=== PATIENT | male | born 1950 | race Caucasian/White ===

== ENCOUNTER → 2017-01-17 | Outpatient (CLI) | payer MEDICARE, OTHER | END | disposition home or self-care (01) | LOC: LABWHC1 09:58 | PROVIDERS: ATTEND Internal Medicine Cardiovascular Disease | DX: I25.10 Atherosclerotic heart disease of native coronary artery without angina pectoris (principal) | CPT/HCPCS: 36415; 83704 ==

== ENCOUNTER → 2017-03-08 | Outpatient (CLI) | payer MEDICARE, OTHER ==
--- NOTE | 2017-03-12 01:12 | XR ---
EXAMINATION TYPE: XR shoulder complete RT DATE OF EXAM: 03/08/2017 3:10 PM COMPARISON: NONE HISTORY: 66-year-old male with right shoulder pain TECHNIQUE: 3 views FINDINGS: Mild degenerative spurring at the acromial clavicular joint without significant joint space narrowing . There is suggestion of some bony irregularity along the posterior humeral head, probable spurring. Some sclerosis noted at the greater tuberosity. There is inferior humeral head spurring with joint sp victoria narrowing at the glenohumeral joint. No acute fracture or dislocation. Visualized right hemithora x is clear. IMPRESSION: At least moderate glenohumeral joint osteoarthrosis. The Grashey view suggests that the degree of annel nt space narrowing may be more severe. Some mild changes at the greater tuberosity suggest chronic ro tator cuff tendinopathy. No acute osseous abnormality seen.
== END | disposition home or self-care (01) ==
LOC: RADXRYALE 14:47
PROVIDERS: ATTEND Family Medicine
DX: M19.011 Primary osteoarthritis, right shoulder (principal)

== ENCOUNTER 2017-06-09 12:20 | Emergency (ER) | payer MEDICARE, OTHER ==
--- NOTE | 2017-06-09 13:34 | XR ---
Exam: Right hand complete. HISTORY: Laceration across base of metacarpals. TECHNIQUE: 4 views of the right hand were obtained. FINDINGS: No acute fracture or subluxation is identified. No radiopaque foreign body is identified. Degenerativ e changes are noted at the first carpometacarpal joint. As well as the distal aspect of the scaphoid bone. Mild soft tissue swelling is noted. IMPRESSION: Mild soft tissue swelling is noted in the hand.
[2017-06-09] MEDS ORDERED: CEPHALEXIN 500 MG CAP PO STA (13:58)
--- NOTE | 2017-06-09 14:01 | ED ---
Wound/Laceration HPI - General Chief Complaint: Wound/Laceration Stated Complaint: Hand Laceration Time Seen by Provider: 06/09/17 12:25 Source: patient Mode of arrival: ambulatory Limitations: no limitations - History of Present Illness Initial Comments: Patient is a 67-year-old right-handed male presenting to the emergency department with chief complaint of laceration to the palmar aspect of his right hand. Patient states he was putting a post in the ground when his hand slipped on the metal. Onset of injury 11:30 AM this morning. Patient complains of a burning pain currently rated 3 out of 10 but denies need for pain medication. Place: outdoors Patient Tetanus UTD: Yes Context: sharp object use Associated Symptoms: pain Treatments Prior to Arrival: bandage, other (Patient states he irrigated the wound and poured sugar on it.) - Related Data Home Medications Medication Instructions Recorded Confirmed Ascorbic Acid [Vitamin C] 500 mg PO DAILY 07/27/14 05/23/16 Cholecalciferol [Vitamin D3] 1,000 unit PO BID 07/27/14 05/23/16 Levothyroxine Sodium [Synthroid] 150 mcg PO QAM 07/27/14 05/23/16 Vitamin E (Dl,Tocopheryl Acet) 2,000 mg PO DAILY 07/27/14 05/23/16 [Vitamin E] Clopidogrel [Plavix] 75 mg PO DAILY 11/16/14 05/23/16 Aspirin 81 mg PO HS 11/17/14 05/23/16 Losartan [Cozaar] 50 mg PO HS 11/17/14 05/23/16 Carvedilol [Coreg] 3.125 mg PO BID 11/15/15 05/23/16 Glucosam/Kamlesh-Msm1/C/Justin/Bosw 1 each PO DAILY 11/15/15 05/23/16 [Glucosamine-Chondroitin Tablet] Multivitamins, Thera [Theragran] 1 each PO DAILY 11/15/15 05/23/16 [place]-3 Fatty Acids/Fish Oil [Fish 7,200 each PO DAILY 11/15/15 05/23/16 Oil 1,000 mg Softgel] Lecithin, Soy [Lecithin] 400 mg PO DAILY 05/23/16 05/23/16 Vitamin B Complex 1 each PO DAILY 05/23/16 05/23/16 Previous Rx's Medication Instructions Recorded Atorvastatin [Lipitor] 80 mg PO HS #30 tab 07/30/14 Cephalexin [Keflex] 500 mg PO Q6HR #20 cap 06/09/17 Allergies Allergy/AdvReac Type Severity Reaction Status Date / Time tramadol Allergy Rash/Hives Verified 05/23/16 14:16 METHOXICHLOR Allergy "passed Uncoded 05/23/16 14:16 out" Review of Systems ROS Statement: Those systems with pertinent positive or pertinent negative responses have been documented in the HPI. ROS Other: All systems not noted in ROS Statement are negative. 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 , LOW THYROID. HX OF DEER TICK BITE WITH BULLSEYE RASH-NEVER TESTED FOR LYMES DISEASE., RECENT LIGHTHEADEDNESS AND DIZZINESS-STATES HAVING TESTING DONE 11/16/15. , ABDOMINAL BLOATING. arthritis in right shoulder. Last Myocardial Infarction Date:: 07-27-14 History of Any Multi-Drug Resistant Organisms: None Reported Past Surgical History: Heart Catheterization With Stent, Joint Replacement, Orthopedic Surgery Additional Past Surgical History / Comment(s): RIGHT KNEE REPLACEMENT, LT LEG SX LIGAMENT REATTATCHMENT,HEART STENT X 1 Past Anesthesia/Blood Transfusion Reactions: No Reported Reaction Date of Last Stent Placement:: 07-27-14 Past Psychological History: No Psychological Hx Reported Smoking Status: Former smoker Past Alcohol Use History: None Reported Past Drug Use History: None Reported - Past Family History Father Family Medical History: No Reported History Additional Family Medical History / Comment(s): DAD IS 88 HAS HAD KNEE AND SHOULDER REPLACEMENT, SKIN TUMOR REMOVED CANCER UNK, Mother Family Medical History: Rheumatoid Arthritis (RA) Additional Family Medical History / Comment(s): RHEUMATIC FEVER General Exam Limitations: no limitations General appearance: alert, in no apparent distress Head exam: Present: atraumatic, normocephalic, normal inspection Respiratory exam: Present: normal lung sounds bilaterally. Absent: respiratory distress, wheezes, rales, rhonchi Cardiovascular Exam: Present: regular rate, normal rhythm, normal heart sounds. Absent: systolic murmur Right Forearm Wrist exam: Present: normal inspection, full ROM. Absent: tenderness, swelling Hand Wrist exam: Present: normal inspection, full ROM, laceration (5 cm laceration to palmar aspect distal to right thumb.) Neuro motor exam: Present: wrist extension intact, thumb opposition intact, thumb IP flexion intact, thumb adduction intact, fingers 2-5 abduction intact Neurosensory exam: Present: 2-point discrimination, radial nerve intact, ulnar nerve intact, median nerve intact Vascular: Present: normal capillary refill, radial pulse, brachial pulse, ulnar pulse. Absent: vascular compromise Neurological exam: Present: alert, oriented X3, other (No focal deficits noted) Psychiatric exam: Present: normal affect, normal mood Skin exam: Present: warm, dry Procedures - Laceration Laceration #1 Consent Obtained: verbal consent Time Out Performed: No Indication: laceration Site: hand (Right hand palmar aspect proximal to right thumb) Size (cm): 5 Description: irregular Depth: simple, single layer Anesthetic Used: lidocaine 1% Anesthesia Technique: local infiltration Amount (mls): 3 Pre-repair: wound explored, irrigated extensively, wound margins revised Type of Sutures: nylon Size of Sutures: 5-0 Number of Sutures: 12 Technique: simple, interrupted Complications: bleeding (Patient did have a small amount of pulsatile bleeding after wound margins were revised. Hemostasis achieved with manual pressure and sutures.) Patient Tolerated Procedure: well Medical Decision Making - Medical Decision Making Laceration to palmar aspect of right hand. Laceration repaired. Patient tolerated procedure well. X-ray of right hand without fracture or evidence of foreign body. Discharge instructions and return parameters reviewed. Disposition Clinical Impression: Laceration Disposition: HOME SELF-CARE Condition: Good Instructions: Care For Your Stitches (ED), Laceration (ED) Additional Instructions: Please return to the emergency room in 7-10 days to have sutures removed. Please watch for any signs of infection which may include increased pain, swelling, redness, fever or chills. Please return to emergency room for any signs if infection do occur. Please use clean soap and water over the area to prevent scabbing over your stitches. Please leave wound covered for the first 24 hours and then leave wound open to air. Please return to the emergency room for any other concerns. Prescriptions: Cephalexin [Keflex] 500 mg PO Q6HR #20 cap Referrals: Helder Rose DO [Primary Care Provider] - 1-2 days Time of Disposition: 14:01
[2017-06-09 14:14] VITALS: BP 125/74; PULSE 61; RESP 16; TEMP 98
== END 2017-06-09 14:18 | disposition home or self-care (01) ==
LOC: EC 12:20
DX: S61.411A Laceration without foreign body of right hand, initial encounter (principal); I10 Essential (primary) hypertension; M19.011 Primary osteoarthritis, right shoulder; E07.9 Disorder of thyroid, unspecified; Z87.891 Personal history of nicotine dependence; Z79.02 Long term (current) use of antithrombotics/antiplatelets; Z79.82 Long term (current) use of aspirin; Z79.899 Other long term (current) drug therapy; Z88.5 Allergy status to narcotic agent; Z91.048 Other nonmedicinal substance allergy status
CPT/HCPCS: 12002; 99283

== ENCOUNTER → 2017-06-17 | Outpatient (CLI) | payer MEDICARE, OTHER ==
--- NOTE | 2017-06-17 15:44 | XR ---
EXAMINATION TYPE: XR wrist complete RT DATE OF EXAM: 06/17/2017 COMPARISON: 06/09/2017. HISTORY: Laceration pain first metacarpal TECHNIQUE: Three-view right wrist FINDINGS: Osseous changes are at the carpal junction with the scaphoid. No radiopaque foreign bodies are evident. Findings are stable from the comparison and images of the 2016. IMPRESSION: 1. Distal carpal row degenerative changes between the scaphoid and the trapezium, chronic.
== END | disposition home or self-care (01) ==
LOC: RADXRYALE 13:45
PROVIDERS: ATTEND Physician Assistant Medical
DX: M25.841 Other specified joint disorders, right hand (principal); S61.411D Laceration without foreign body of right hand, subsequent encounter

== ENCOUNTER → 2017-07-04 | Outpatient (CLI) | payer MEDICARE, OTHER ==
--- NOTE | 2017-07-04 16:06 | XR ---
EXAMINATION TYPE: XR wrist complete RT DATE OF EXAM: 07/04/2017 CLINICAL HISTORY: Swelling and pain in wrist after use. TECHNIQUE: Frontal, lateral and oblique images of the right wrist are obtained. COMPARISON: Right wrist x-ray June 17, 2017 FINDINGS: There is no acute fracture/dislocation evident in the right wrist. Radiocarpal joint space loss is redemonstrated. More prominent joint space loss with ossific re-formation is seen at distal scaphoid articulation with trapezium and trapezoid. The overlying soft tissue appears unremarkable. IMPRESSION: There is radial side degenerative change redemonstrated. No significant from most recent x-ray noted.
== END | disposition home or self-care (01) ==
LOC: RADXRYALE 15:17
PROVIDERS: ATTEND Family Medicine
DX: M25.831 Other specified joint disorders, right wrist (principal); M25.531 Pain in right wrist

== ENCOUNTER → 2018-02-27 | Outpatient (CLI) | payer MEDICARE, OTHER ==
[2018-02-27 11:36] LABS: Appearance,Urine Clear (Clear); Bilirubin,Urine Negative (Negative); Blood,Urine Negative (Negative); Color,Urine Dark Yellow; Glucose,Urine (UA) Negative (Negative); Ketones,Urine 1+ (Negative); Leukocyte Esterase,Urine Negative (Negative); Nitrite,Urine Negative (Negative); Protein,Urine Trace (Negative); Specific Gravity,Urine 1.021 (1.001-1.035); Urobilinogen,Urine <2.0 mg/dL (<2.0)
[2018-02-27 11:37] LABS: HGB 13.7 gm/dL (13.0-17.5); MCH 30.5 pg (25.0-35.0); MCHC 35.1 g/dL (31.0-37.0); MCV 86.9 fL (80.0-100.0); Mean Platelet Volume 6.6; Platelet Count 292 k/uL (150-450); RBC 4.49 m/uL (4.30-5.90); RDW 13.3 % (11.5-15.5); WBC 6.2 k/uL (3.8-10.6)
[2018-02-27 11:43] LABS: ALT 56 U/L (21-72); AST 51 U/L (17-59); Albumin 4.4 g/dL (3.5-5.0); Alkaline Phosphatase 76 U/L (38-126); Anion Gap 13 mmol/L; Blood Urea Nitrogen 13 mg/dL (9-20); Calcium 9.4 mg/dL (8.4-10.2); Carbon Dioxide 25 mmol/L (22-30); Chloride 104 mmol/L (98-107); Glucose 122 mg/dL (74-99); Potassium 4.3 mmol/L (3.5-5.1); Sodium 142 mmol/L (137-145); Total Bilirubin 0.6 mg/dL (0.2-1.3); Total Protein 6.9 g/dL (6.3-8.2)
[2018-02-27 11:57] LABS: INR 1.2 (<1.2); Partial Thromboplastin Time 23.6 sec (22.0-30.0); Prothrombin Time 11.3 sec (9.0-12.0)
== END ==
LOC: LABPAT 10:58
PROVIDERS: ATTEND Orthopaedic Surgery
DX: Z01.812 Encounter for preprocedural laboratory examination (principal)
CPT/HCPCS: 80053; 81003; 85027; 85610; 85730; 87070

== ENCOUNTER 2018-03-03 10:23 | Inpatient (IN) | payer MEDICARE, OTHER ==
[2018-02-20 16:35] VITALS: BMI 33.0
[~2018-03-03 10:23] MED LIST: ACETAMINOPHEN TAB 500 MG TAB PO ONE; LIDOCAINE 1% 20 ML VIAL (10MG/ML) FOR IV START INTRADERMA PRN; MELOXICAM 7.5 MG TAB PO ONE; ONDANSETRON ODT 4 MG TAB PO ONE; TRANEXAMIC ACID 1,000 MG in SODIUM CHLORIDE 0.9% 100 ML IVPB ONE; ceFAZolin IN SWFI 2 GM/20 ML SYRINGE IVP ONE; fentaNYL (PF) 50 MCG/ML 2 ML AMP IV PRN
[2018-03-03 11:15] LABS: Glucose,Whole Blood 116 mg/dL (75-99)
[2018-03-03] MEDS ORDERED: MIDAZOLAM 2 MG/2 ML VIAL ONE ×2 (11:23→12:42)
[2018-03-03] MEDS: LACTATED RINGERS 1,000 ML IV SCH ×2 (11:27→21:39)
[2018-03-03] MEDS ORDERED: ONDANSETRON 4 MG/2 ML VIAL IVP ONE (11:27)
[2018-03-03] MEDS ORDERED: PHENYLEPHRINE-0.9% NACL SYG 1 MG/10 ML SYRINGE ONE (12:42)
[2018-03-03] MEDS ORDERED: TRANEXAMIC ACID 1,000 MG/10 ML VIAL ONE (12:42)
[2018-03-03] MEDS ORDERED: ROCURONIUM BROMIDE 10 MG/ML 10 ML VIAL IV ONE (12:42)
[2018-03-03] MEDS ORDERED: SODIUM CHLORIDE 0.9% 100 ML BAG ONE (12:42)
[2018-03-03] MEDS ORDERED: LIDOCAINE 1% INJ 10MG/ML (20 ML MDV) ONE (12:42)
[2018-03-03] MEDS ORDERED: PROPOFOL 10 MG/ML 20 ML VIAL IV ONE (12:42)
[2018-03-03] MEDS ORDERED: SUCCINYLCHOLINE CHLORIDE 100 MG/5 ML SYR IV ONE (12:42)
[2018-03-03] MEDS ORDERED: fentaNYL (PF) 50 MCG/ML 2 ML AMP ONE (12:42)
[2018-03-03] MEDS ORDERED: MORPHINE SULFATE 10 MG/ML SYRINGE ONE (12:42)
[2018-03-03] MEDS ORDERED: ceFAZolin 1,000 MG in SODIUM CHLORIDE 0.9% 1,000 ML IRRIGATION ONE ×2 (12:47→15:10)
[2018-03-03] MEDS ORDERED: EPINEPHrine 1 MG/ML (MDV) 30 ML VIAL IRRIGATION ONE (14:50)
[2018-03-03] MEDS ORDERED: LACTATED RINGERS 1,000 ML IV ONE (14:54)
[2018-03-03] MEDS ORDERED: diphenhydrAMINE 25 MG CAP PO PRN (16:22)
[2018-03-03] MEDS ORDERED: SENNOSIDES-DOCUSATE SODIUM 1 EACH TAB PO PRN (16:22)
[2018-03-03] MEDS ORDERED: MORPHINE SULFATE 4 MG/ML SYRINGE IVP PRN ×3 (16:22)
[2018-03-03] MEDS ORDERED: hydrOXYzine PAMOATE 25 MG CAP PO PRN (16:22)
[2018-03-03] MEDS ORDERED: ONDANSETRON 4 MG/2 ML VIAL IVP PRN (16:22)
[2018-03-03] MEDS ORDERED: HYDROcodone/APAP 7.5-325MG 1 EACH TAB PO PRN ×2 (16:31→16:33)
--- NOTE | 2018-03-03 17:01 | XR ---
History postop shoulder surgery. Comparison 03/08/2017. technique single view. FINDINGS: There is a right shoulder prosthesis. Components are in anatomic position. CONCLUSION: No complicating process seen.
[2018-03-03 18:20] LABS: Glucose,Whole Blood 164 mg/dL (75-99)
[2018-03-03 20:12] LABS: Glucose,Whole Blood 138 mg/dL (75-99)
--- NOTE | 2018-03-03 23:40 | P.CONS ---
History of Present Illness - Reason for Consult Consult date: 03/03/18 Medical management of hypertension, hyperlipidemia - Chief Complaint Right shoulder arthroplasty - History of Present Illness Patient is a 67-year-old male with a known history of hypertension, diabetes type 2 [id number], obstructive sleep apnea, coronary artery disease with history of stent placement was admitted to the hospital for right total arthroplasty. Patient says that she's been having right shoulder pain for the past several years after tree fell over his shoulder. Patient currently complaining of some shortness of breath. No complaints chest pain. No fever no chills. Patient is able to provide history at this time. Review of Systems Constitutional: Patient denies any fever or chills . No generalized weakness or weight loss. Abdomen: Patient denied nausea vomiting and diarrhea and abdominal pain. Cardiovascular: Patient denies any chest pain or short of breath no palpitations. Respiratory: patient denied any cough is from production. No shortness of breath Neurologic: Patient denied any numbness or tingling headache. Musculoskeletal: Patient denies any complaints of joint swelling or deformity. Skin: Negative Psychiatric: Negative Endocrine: No heat or cold intolerance. No recent weight gain. Genitourinary: No dysuria or hematuria. 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 , LOW THYROID. HX OF DEER TICK BITE WITH BULLSEYE RASH-Neg LYMES DISEASE, ABDOMINAL BLOATING. arthritis in right shoulder,dried skin area rt index finger Last Myocardial Infarction Date:: 07-27-14 History of Any Multi-Drug Resistant Organisms: None Reported Past Surgical History: Heart Catheterization With Stent, Joint Replacement, Orthopedic Surgery Additional Past Surgical History / Comment(s): RIGHT KNEE REPLACEMENT, LT LEG SX LIGAMENT REATTATCHMENT,HEART STENT X 1 Past Anesthesia/Blood Transfusion Reactions: No Reported Reaction Additional Past Anesthesia/Blood Transfusion Reaction / Comm: no hx blood transfusion Date of Last Stent Placement:: 07-27-14 Smoking Status: Former smoker - Past Family History Father Family Medical History: No Reported History Additional Family Medical History / Comment(s): DAD IS 91 HAS HAD KNEE AND SHOULDER REPLACEMENT Mother Family Medical History: Rheumatoid Arthritis (RA) Additional Family Medical History / Comment(s): RHEUMATIC FEVER Medications and Allergies Home Medications Medication Instructions Recorded Confirmed Type Ascorbic Acid [Vitamin C] 500 mg PO BID 07/27/14 03/03/18 History Cholecalciferol [Vitamin D3] 2,000 unit PO BID 07/27/14 03/03/18 History Levothyroxine Sodium [Synthroid] 150 mcg PO QAM 07/27/14 03/03/18 History Vitamin E (Dl,Tocopheryl Acet) 1,200 mg PO DAILY 07/27/14 03/03/18 History [Vitamin E] Atorvastatin [Lipitor] 80 mg PO HS #30 tab 07/30/14 03/03/18 Rx Losartan [Cozaar] 25 mg PO HS 11/17/14 03/03/18 History Carvedilol [Coreg] 3.125 mg PO BID 11/15/15 03/03/18 History Glucosam/Kamlesh-Msm1/C/Justin/Bosw 1 tab PO DAILY 11/15/15 03/03/18 History [Glucosamine-Chondroitin Tablet] Multivitamins, Thera [Theragran] 1 tab PO DAILY 11/15/15 03/03/18 History [place]-3 Fatty Acids/Fish Oil [Fish 1 cap PO BID 11/15/15 03/03/18 History Oil 1,000 mg Softgel] Lecithin, Soy [Lecithin] 1,200 mg PO BID 05/23/16 03/03/18 History Vitamin B Complex 2 cap PO DAILY 05/23/16 03/03/18 History Cinnamon Bark [Cinnamon] 1,000 mg PO HS 02/20/18 03/03/18 History HYDROcodone/APAP 7.5-325MG [[place] 1 - 2 tab PO Q4-6H PRN #90 tab 03/03/18 Rx 7.5-325] Sennosides-Docusate Sodium 1 tab PO BID #60 tablet 03/03/18 Rx [Senokot-S] Allergies Allergy/AdvReac Type Severity Reaction Status Date / Time tramadol Allergy Rash/Hives Verified 03/03/18 16:55 METHOXICHLOR Allergy "passed Uncoded 03/03/18 10:54 out" Physical Exam Vitals: Vital Signs Temp Pulse Resp BP Pulse Ox 03/03/18 17:15 62 16 134/71 95 03/03/18 17:00 65 16 150/79 95 03/03/18 16:45 65 16 141/74 96 03/03/18 16:30 65 17 153/82 96 03/03/18 16:23 96.8 F L 68 16 142/82 97 03/03/18 11:03 97.3 F L 65 16 131/83 96 Intake and Output 03/03/18 03/03/18 03/03/18 06:59 14:59 22:59 Intake Total 1701 1 Output Total 150 Balance 1701 -149 Intake: IV 1701 1 Output: Estimated Blood Loss 150 PHYSICAL EXAMINATION: Patient is lying in the bed comfortably, no acute distress, awake alert and oriented.. HEENT: Normocephalic. Neck is supple. Pupils reactive. Nostrils clear. Oral cavity is moist. Ears reveal no drainage. Neck reveals no JVD, carotid bruits, or thyromegaly. CHEST EXAMINATION: Trachea is central. Symmetrical expansion. Lung queen clear to auscultation and percussion. CARDIAC: Normal S1, S2 with no gallops. No murmurs ABDOMEN: Soft. Bowel sounds normal. No organomegaly. No abdominal bruits. Extremities: reveal no edema. No clubbing or cyanosis Neurologically awake, alert, oriented x3 with well-coordinated movements. No focal deficits noted Skin: No rash or skin lesions. Psychiatric: Coperative. Nonsuicidal Musculoskeletal: No joint swelling or deformity. Right shoulder surgical site bandaged. Results Labs: Abnormal Lab Results - Last 24 Hours (Table) 03/03/18 Range/Units 11:12 POC Glucose (mg/dL) 116 H (75-99) mg/dL Assessment and Plan Assessment: Status post right shoulder arthroplasty. Postoperative day 0 Hypertension. Controlled Diabetes type 2. [id number] History of coronary artery disease and stent placement Osteoarthritis with history of right knee replacement History of [place] Obstructive sleep apnea Hypothyroidism Hyperlipidemia History of deer tick bite with bull's-eye rash-negative Lyme disease Deafness/hearing loss Previous history of smoking DVT prophylaxis Plan: Patient is recommended on home blood pressure medications including Coreg and losartan. Aspirin has been held for surgery. Continue with insulin sliding scale and pain management with bowel regimen. DVT prophylaxis. Otherwise we can the current management and further recommendations based on the clinical course. Will follow closely. Will check CBC. Thank you for your consult Time with Patient: Greater than 30
[2018-03-04] MEDS: ceFAZolin IN SWFI 2 GM/20 ML SYRINGE IVP SCH ×2 (01:04→09:10)
[2018-03-04] MEDS: LACTATED RINGERS 1,000 ML IV SCH ×2 (05:17)
[2018-03-04] MEDS ORDERED: LEVOTHYROXINE 75 MCG TAB PO SCH (06:30)
[2018-03-04 07:05] LABS: Glucose,Whole Blood 143 mg/dL (75-99)
[2018-03-04] MEDS ORDERED: CARVEDILOL 3.125 MG TAB PO SCH (07:30)
[2018-03-04 07:57] VITALS: BP 136/82; PULSE 85; RESP 14; TEMP 99.3
[2018-03-04] MEDS ORDERED: HYDROmorphone 2 MG TAB PO PRN ×3 (09:13→09:14)
--- NOTE | 2018-03-04 09:49 | P.DS ---
Providers Date of admission: 03/03/18 10:23 Expected date of discharge: 03/04/18 Attending physician: Girma Fabian Consults: 03/03/18 16:22 Consult Physician Routine Consulting Provider: Helder Rose Consult Reason/Comments: Medical management Do you want consulting provider notified?: Yes 03/03/18 17:13 Consult Physician Routine Consulting Provider: Avril Campa Consult Reason/Comments: Medical Management Do you want consulting provider notified?: Yes Primary care physician: Helder Rose - Discharge Diagnosis(es) (1) Status post total replacement of right shoulder Current Visit: Yes Status: Acute (2) Osteoarthritis of right shoulder Current Visit: Yes Status: Acute Hospital Course: This is a 67-year-old male who has history of severe degenerative arthritis of the right shoulder and presented to discuss surgical options. After discussion and consideration the patient elects to proceed with total shoulder arthroplasty. The pt is seen preoperatively by their family physician and cleared for surgery. The patient is admitted to [facility] on 03/03/2018 for total right shoulder arthroplasty. He is doing well postoperatively. Vital signs and hemoglobin are stable. The pt is able to get up out of bed independently and is ambulating without assistance. Pain is well controlled. Patient is discharged to home on postoperative day #1 in good condition. Please see med rec for accurate list of home medications. Patient Condition at Discharge: Stable Plan - Discharge Summary Discharge Rx Participant: No New Discharge Prescriptions: New HYDROcodone/APAP 7.5-325MG [[place] 7.5-325] 1 - 2 tab PO Q4-6H PRN #90 tab PRN Reason: Pain Sennosides-Docusate Sodium [Senokot-S] 1 tab PO BID #60 tablet No Action Levothyroxine Sodium [Synthroid] 150 mcg PO QAM Vitamin E (Dl,Tocopheryl Acet) [Vitamin E] 1,200 mg PO DAILY Ascorbic Acid [Vitamin C] 500 mg PO BID Cholecalciferol [Vitamin D3] 2,000 unit PO BID Atorvastatin [Lipitor] 80 mg PO HS #30 tab Losartan [Cozaar] 25 mg PO HS Carvedilol [Coreg] 3.125 mg PO BID Multivitamins, Thera [Theragran] 1 tab PO DAILY [place]-3 Fatty Acids/Fish Oil [Fish Oil 1,000 mg Softgel] 1 cap PO BID Glucosam/Kamlesh-Msm1/C/Justin/Bosw [Glucosamine-Chondroitin Tablet] 1 tab PO DAILY Vitamin B Complex 2 cap PO DAILY Lecithin, Soy [Lecithin] 1,200 mg PO BID Cinnamon Bark [Cinnamon] 1,000 mg PO HS Discharge Medication List Ascorbic Acid [Vitamin C] 500 mg PO BID 07/27/14 [History] Cholecalciferol [Vitamin D3] 2,000 unit PO BID 07/27/14 [History] Levothyroxine Sodium [Synthroid] 150 mcg PO QAM 07/27/14 [History] Vitamin E (Dl,Tocopheryl Acet) [Vitamin E] 1,200 mg PO DAILY 07/27/14 [History] Atorvastatin [Lipitor] 80 mg PO HS #30 tab 07/30/14 [Rx] Losartan [Cozaar] 25 mg PO HS 11/17/14 [History] Carvedilol [Coreg] 3.125 mg PO BID 11/15/15 [History] Glucosam/Kamlesh-Msm1/C/Justin/Bosw [Glucosamine-Chondroitin Tablet] 1 tab PO DAILY 11/15/15 [History] Multivitamins, Thera [Theragran] 1 tab PO DAILY 11/15/15 [History] [place]-3 Fatty Acids/Fish Oil [Fish Oil 1,000 mg Softgel] 1 cap PO BID 11/15/15 [ History] Lecithin, Soy [Lecithin] 1,200 mg PO BID 05/23/16 [History] Vitamin B Complex 2 cap PO DAILY 05/23/16 [History] Cinnamon Bark [Cinnamon] 1,000 mg PO HS 02/20/18 [History] HYDROcodone/APAP 7.5-325MG [[place] 7.5-325] 1 - 2 tab PO Q4-6H PRN #90 tab [Rx] Sennosides-Docusate Sodium [Senokot-S] 1 tab PO BID #60 tablet 03/03/18 [Rx] Follow up Appointment(s)/Referral(s): Simin Bray, ABRAHAM [PHYSICIAN BILLING DEPARTMENT SUPERVISOR] - 2 Weeks Activity/Diet/Wound Care/Special Instructions: May shower if no drainage from incision. Maintain sling for comfort. Discharge Disposition: HOME SELF-CARE
[2018-03-04 11:08] LABS: Glucose,Whole Blood 167 mg/dL (75-99)
--- NOTE | 2018-03-04 17:00 | PN ---
PROGRESS NOTE DATE OF SERVICE: 03/04/2018 This 67-year-old gentleman who was admitted after right shoulder arthroplasty improved significantly. No chest pain. No palpitations. No fever. PHYSICAL EXAM: Alert and oriented x3. Pulse 85. Blood pressure 133/80. Respirations 14, temperature 99.2, pulse ox 94% on room air. HEENT: Conjunctivae normal. Neck: No jugular venous distention. Cardiovascular System: S1, S2. Respirations: Breath sounds diminished in the bases. ABDOMEN: Soft, nontender. Central nervous system: No focal deficits. Right shoulder status post arthroplasty. LABS: Accu-Cheks 131, 143, 167. ASSESSMENT: 1. Status post right shoulder arthroplasty. 2. Hypertension. 3. Diabetes type 2. 4. Coronary artery disease/stent. 5. History of degenerative joint disease, right knee replacement. RECOMMENDATIONS AND DISCUSSION: Recommend to continue current medications, symptomatic treatment, management. At this time I would recommend resume the home medications and follow with the primary physician and monitor blood sugars closely. The rest of the recommendations per Orthopedic surgery. MMODL / IJN: [id number] /
[2018-03-04] MEDS ORDERED: ATORVASTATIN 80 MG TAB PO SCH (21:00)
--- NOTE | 2018-03-05 08:41 | P.ONQ ---
Anesthesiology Proc Note - PNB - Peripheral Nerve Block Performed Right Interscalene Single Time Out Performed: Yes Procedure Start Time: 16:56 Procedure Stop Time: 17:04 Indication: Acute Post-Operative Pain, Requested by physician Sedation Type: Sedate with meaningful contact maintained Preparation: Sterile Prep Position: Supine Needle Size: 50mm (2") Needle Gauge: 21 Technique: Ultrasound Injectate: 0.5% Ropivacaine (see comment for volume) (ropi .5% 30cc) Blood Aspirated: No Pain Paresthesia on Injection Noted: No Resistance on Injection: Normal Events: Uneventful and Well Tolerated
--- NOTE | 2018-03-05 16:12 | P.OP ---
Date of Procedure: 03/03/18 Procedure(s) Performed: Right shoulder TSA Ursa 9 stem large glenoid 56/24 humeral head suture bridge subscap repair Simin bray 150 cc EBL no complications 40-50-60 test good. PREOPERATIVE DIAGNOSES: 1. Right Shoulder severe osteoarthritis of the glenohumeral joint POSTOPERATIVE DIAGNOSES: 1. Right Shoulder severe osteoarthritis of the glenohumeral joint PROCEDURES PERFORMED: 1. Right Shoulder total replacement arthroplasty (metal on polyethylene articulation) (Arthrex) 2. Long head biceps tenotomy with tenodesis ANESTHESIA: Gen. plus interscalene block for postop pain control AUTOMATIC ENGRAVER: Simin Bray PA-C (assistance with exposure, hemostasis, retraction, fixation, closure, dressing, splint) COMPLICATIONS: None ESTIMATED BLOOD LOSS: 150 mL. DISPOSITION: To post-anesthesia care unit INDICATIONS: Mr. Wise is a 67 year old male with a history of severe shoulder glenohumeral osteoarthritis. Conservative treatment has failed. The plan today is total replacement arthroplasty. I discussed risks and potential complications as being inclusive of, but not limited to: Bleeding, infection, scarring, discomfort, blood vessel and/or nerve damage, fracture, stiffness, loosening, dislocation, wear, osteolysis, weakness, and need for revision, and other risks. Appropriate consent has been obtained and the form has been signed. PROCEDURE: After appropriate consent was obtained, the patient was taken to the operating room placed in the supine position. Anesthesia was initiated, and after confirmation of adequate anesthesia, the patient was carefully positioned in the modified beachchair position with approximately 30 elevation of the back rest. Care was taken to make sure that all pressure points were adequately padded. and head was secured with Coban wrap. Prepping and draping were completed in the usual aseptic fashion using ChloraPrep. Ioban drape was used for the case. Timeout was called, confirming patient identity, side, procedure, and administration of antibiotics and tranexamic acid. Incision was created from just superior and medial to the coracoid process at the inferior margin of the clavicle obliquely across the front of the shoulder down to just lateral to the axillary fold. Incision was deepened carefully through skin and into subcutaneous tissues and down to muscle. Skin flaps were undermined to improve exposure. The cephalic vein was encountered and protected. Dissection along the lateral side of the cephalic vein was accomplished and the vein was retracted along with the pectoralis. The deltopectoral interval was incised and the clavipectoral fascia came into view. Self-retaining retractor was applied with care not to damage the cephalic vein. The strap muscles were noted, and dissection proceeded lateral to the red stripe and a self-retaining retractor consisting of a [place] self-retaining retractor with appropriate sized blades was used under the strap muscles and under the deltoid. Should be noted that the deltoid was carefully mobilized from the humerus with a Ding elevator. Excellent exposure was accomplished. Subscapularis tendon was noted and a small opening was created at the rotator interval superiorly. A Hohmann retractor was placed in this region for superior retraction. Dissection proceeded along the superior margin of the subscapularis tendon to the coracoid. The inferior aspect of the subscapularis tendon was noted and the anterior circumflex circumflex vessels were dissected out, and ligated with 0 Vicryl suture. Subscapularis tenotomy was then performed just lateral to the articular surface of the humeral head leaving approximately 1 cm of residual subscapularis stump left attached laterally to the lesser tuberosity. Tag stitches were placed in the subscapularis tendon superiorly and inferiorly. Incision was performed using electrocautery down to the anterior circumflex humeral vessels and along the inferior humeral neck. Progressive external rotation of the shoulder assisted in releasing necessary soft tissue down to approximately the 6 o'clock position on the humerus. Inferior capsule below the inferior margin of the subscapularis tendon was resected sharply using cautery and dissecting scissors. The axillary nerve was then palpated and identified and protected with a sharp Hohmann retractor placed just anterior to the nerve at the level of the inferior glenoid. Further capsular resection was then performed using cautery, staying anterior to the retractor. Further release of the subscapularis was performed on its deep surface, releasing the anterior capsule from its attachment to the subscapularis. Finally, the superior border of the subscapularis tendon was followed and accommodation of electrocautery and dissecting scissors to the base of the coracoid , releasing attachments to the bone. This completed the 360 release of the subscapularis. The tendon mobility was tested by gently pulling on the tag sutures . The subscapularis tendon was then tucked medially beneath the strap muscles. Next, the humeral head was gently dislocated from the joint with progressive external rotation, adduction, and extension. Metal fingers were placed around the inferior aspect of the humeral head and superiorly. Excellent exposure was accomplished. Spurs were removed from the periphery of the humeral head and inferior humeral neck. Biceps tenotomy was then performed at this point, so that the biceps sheath entrance could be clearly visualized. A starter reamer was then placed just posterior to the bicipital groove and reaming commenced by hand. Progressive reaming was then performed by hand until initial chatter within the humeral diaphysis was noted. The reamer was then left in place and a cutting jig was applied to the reamer shaft. Depth of cut was adjusted as well as rotation. Metal fingers were utilized around the humeral head so that the cut was able to be clearly visualized all the way to the posterior aspect of the humeral head. Care was taken not to damage any portion of the rotator cuff insertion. Retroversion of the humeral head was adjusted to match this patient's ute retroversion. This was approximately 30. Retroversion was confirmed by using alignment rods. The cutting block was then pinned into place and the reamer was removed along with the boom. The cut was then executed with an oscillating saw with care to protect the soft tissues. The cut humeral head was then measured and sized. This patient had severe arthritis but a mild amount of flattening of the humeral head. Once the humeral head cut had been finalized, proximal broaching was performed to the anticipated size of the humeral component to be used. Trial component was then implanted. It should be noted that this patient had minimal osteopenia and had adequate bone stock proximally to allow for a press- fit component. Trial humeral head component with an eccentric hole was then attached and rotated so that there was complete coverage of the humeral head cut. Different sizes were trialed so that there was complete coverage of the cut surface as well as slight overhang of the medial calcar. Care was taken not to overstuff the joint. Trial head was then removed and replaced with a flat metal surface to protect the humeral head cut. Leaving the humeral component in place to protect the proximal humeral anatomy, a glenoid retractor was applied into the joint to retract the proximal humerus posteriorly. Excellent exposure of the glenoid was accomplished. Removal of capsule labral tissue around the periphery of the glenoid was performed sharply and with cautery. There was really no significant remaining cartilage on the patient's glenoid, but what cartilage remained was removed using a curette. The center point was then marked with cautery and glenoid sizing was performed. The center hole of the glenoid sizer was then positioned over the marked centerpoint and drilled. Reaming was then performed, removing little bone but making sure that the glenoid surface matched that of the glenoid component. Reaming was performed also to normalize the angle of the glenoid vault, taking into consideration any posterior glenoid erosion. The glenoid was prepared for a pegged Vaultlock component from Arthrex. The holes were then connected using a rongeur and finished using the keel impactor. Trial component was then inserted and was noted to be flush against the prepared glenoid surface. Trial reduction was then performed carefully relocating the humeral head and placing the eccentric head in the same position as was previously determined. Excellent stability was noted of all components. The shoulder had 50% translation with posteriorly directed force and reduced spontaneously when the force was removed. In abduction, patient had at least 65 of internal rotation and with the humerus at the patient's side, external rotation was 60 plus. Trial component from the glenoid was then removed and retractors were reapplied. The glenoid component was called for and the glenoid vault was prepared with epinephrine-soaked sponges and irrigation. The inside of the keel was undermined with a curette and the debris removed in order to enhance cement fixation. After thorough lavage and drying of the glenoid vault, cement was mixed on the back table and allowed to reach a slightly doughy consistency. The cement was then inserted into the prepared glenoid vault and pressurization was done several times with the keel impactor. Final cementing was then applied and the glenoid surface was free of cement, but the superior peg and the keel had cement applied. The component was then inserted and impacted into position. Constant pressure was held on the component until the cement had fully hardened. Excess cement was removed. The periphery of the component was checked and the component was completely flush against the glenoid. The trial component from the humerus was then removed and the humeral canal was lavaged with saline. 2 holes were drilled within the bicipital groove to match the plan component location of the #2 FiberWire that was placed into the final humeral component for subscapularis repair. The component was also prepared with 4 more sutures through the anterior medial side of the component also for the subscapularis repair. Final component was called for and implanted with firm mallet taps until it was fully deployed. It was noted to be stable. As a double check, trials humeral heads were then utilized to make sure that the joint was not overstuffed and that the components matched up well. Patient had a satisfactory 40-50-60 test. Subsequent, the final humeral head implant was called for and impacted onto the Reynolds taper of the humeral stem with care to line up the head with the rotation wiggins to obtain full coverage. Thorough lavage was performed and final range of motion and stability testing was satisfactory. The subscapularis tendon was then repaired utilizing the previously placed sutures within the humeral component. The medial 4 pairs of sutures were brought through an appropriate location at the subscapularis tendon approximately 1.5 cm from its edge. These were tied to the through bone sutures in the bicipital groove in specific fashion to execute a suture bridge across the lesser tuberosity. One additional [id number] stitch of #2 FiberWire was placed superiorly at the lateral superior corner of the subscapularis tendon, connecting it to the insertion of the supraspinatus tendon. Once this was performed external rotation was rechecked and found to be 60. The repair of the subscapularis was very stable and joint biomechanics appeared very satisfactory. The long head of the biceps tendon was then dissected free of its soft tissue attachments proximal to the bicipital groove groove and reattached using #2 FiberWire sutures in [id number]-co-[id number] fashion to the short head of the biceps off of the coracoid. Thorough irrigation was performed of the soft tissues. Hemostasis was double checked using cautery. Careful deltopectoral interval closure was performed with care to to avoid the cephalic vein. Final subcutaneous closure was performed using 2-0 Vicryl suture followed by Quill subcuticular stitch and Dermabond. Sterile dressing was then applied and sling was applied. Patient tolerated the procedure well and taken to recovery room in stable condition. Sponge and needle counts were correct.
== END 2018-03-04 12:55 | disposition home or self-care (01) | DRG 483 ==
LOC: 2ORMAIN 10:23 → 3SUR 16:16
PROVIDERS: ADMIT Orthopaedic Surgery; ATTEND Orthopaedic Surgery
PROC: 0RRJ0JZ Replacement of Right Shoulder Joint with Synthetic Substitute, Open Approach (ICD-10-PCS; principal; 2018-03-03 12:30)
DX: M19.011 Primary osteoarthritis, right shoulder (principal); E03.9 Hypothyroidism, unspecified; H91.90 Unspecified hearing loss, unspecified ear; I25.10 Atherosclerotic heart disease of native coronary artery without angina pectoris; I10 Essential (primary) hypertension; E78.5 Hyperlipidemia, unspecified; E11.9 Type 2 diabetes mellitus without complications; H26.9 Unspecified cataract; G47.33 Obstructive sleep apnea (adult) (pediatric); Z96.651 Presence of right artificial knee joint; Z82.61 Family history of arthritis; Z95.5 Presence of coronary angioplasty implant and graft; Z79.82 Long term (current) use of aspirin; Z87.891 Personal history of nicotine dependence; Z79.891 Long term (current) use of opiate analgesic; I25.2 Old myocardial infarction; Z79.899 Other long term (current) drug therapy; Z79.890 Hormone replacement therapy; Z88.8 Allergy status to other drugs, medicaments and biological substances
CPT/HCPCS: 88300

== ENCOUNTER → 2019-11-19 | Outpatient (CLI) | payer MEDICARE, OTHER | END | disposition home or self-care (01) | LOC: LABWHC1 11:32 | PROVIDERS: ATTEND Urology | DX: R97.20 Elevated prostate specific antigen [PSA] (principal) | CPT/HCPCS: 36415; 84153 ==

== ENCOUNTER → 2020-04-14 | Outpatient (CLI) | payer MEDICARE, OTHER ==
[2020-04-14 08:40] LABS: HCT 40.3 % (39.0-53.0); HGB 13.3 gm/dL (13.0-17.5); MCH 29.2 pg (25.0-35.0); MCV 88.7 fL (80.0-100.0); Mean Platelet Volume 6.6; Platelet Count 384 k/uL (150-450); RBC 4.54 m/uL (4.30-5.90); RDW 13.2 % (11.5-15.5); WBC 14.3 k/uL (3.8-10.6)
[2020-04-14 08:55] LABS: Albumin 3.4 g/dL (3.5-5.0); Calcium 8.9 mg/dL (8.4-10.2); Potassium 3.9 mmol/L (3.5-5.1); Total Bilirubin 0.3 mg/dL (0.2-1.3); Total Protein 6.6 g/dL (6.3-8.2)
[2020-04-14 09:53] LABS: T4, Free (Free Thyroxine) 1.36 ng/dL (0.78-2.19)
== END | disposition home or self-care (01) ==
LOC: PROCWHC3 07:30
PROVIDERS: ATTEND Physician Assistant
DX: R50.9 Fever, unspecified (principal); R05 Cough; R19.7 Diarrhea, unspecified
CPT/HCPCS: 87798 ×3; 87498; 84439; 80053; 84443; 85027; 87502 ×2; 87634; 36415; U0003

== ENCOUNTER → 2021-07-05 | Outpatient (CLI) | payer MEDICARE ==
--- NOTE | 2021-07-06 08:54 | XR ---
EXAMINATION TYPE: XR wrist complete 3 views LT, XR hand complete 3 views LT DATE OF EXAM: 07/05/2021 COMPARISON: NONE HISTORY: 71-year-old male with weakness and pain FINDINGS: Wrist: Moderate degenerative change first CMC joint and severe at the triscaphe joint with joint space narro wing and marginal spurring. Loose bodies are present. Some scattered synovial calcifications are also noted, including within the ulnocarpal joint. Subcortical cystic change within the distal carpal row . There is joint space narrowing along the lunocapitate joint. Hand: No acute fracture, subluxation, or dislocation is seen. IMPRESSION: 1. Wrist: Midcarpal compartment OA particularly at the lunocapitate joint significant joint space juan rowing. Scattered degenerative subchondral cystic change within the carpus as well. 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 2. Hand: Moderate to severe OA at the first CMC and triscaphe joints.
== END ==
LOC: RADXRYALE 15:49
PROVIDERS: ATTEND Physician Assistant Medical
DX: M19.032 Primary osteoarthritis, left wrist (principal); M19.042 Primary osteoarthritis, left hand; M18.12 Unilateral primary osteoarthritis of first carpometacarpal joint, left hand

== ENCOUNTER 2023-03-01 05:55 | Day surgery (SDC) | payer MEDICARE ==
[~2023-03-01 05:55] MED LIST changes: -ACETAMINOPHEN TAB 500 MG TAB PO ONE; +LACTATED RINGERS 1,000 ML IV SCH; -LIDOCAINE 1% 20 ML VIAL (10MG/ML) FOR IV START INTRADERMA PRN; -MELOXICAM 7.5 MG TAB PO ONE; -ONDANSETRON ODT 4 MG TAB PO ONE; -TRANEXAMIC ACID 1,000 MG in SODIUM CHLORIDE 0.9% 100 ML IVPB ONE; -ceFAZolin IN SWFI 2 GM/20 ML SYRINGE IVP ONE; -fentaNYL (PF) 50 MCG/ML 2 ML AMP IV PRN
[2023-03-01 06:27] VITALS: TEMP 98.3
[2023-03-01 06:45] LABS: Glucose,Whole Blood 153 mg/dL (70-110)
[2023-03-01] MEDS ORDERED: PROPOFOL 10 MG/ML 20 ML VIAL IV ONE (07:22)
--- NOTE | 2023-03-01 07:38 | P.PCN ---
Date of Procedure: 03/01/23 Implants: BRIEF HISTORY: Patient is a 72-year-old pleasant male scheduled for an elective colonoscopy as a part of evaluation of prior history of colon polyps. His last colonoscopy was 7 years ago. PROCEDURE PERFORMED: Colonoscopy. PREOPERATIVE DIAGNOSIS: History of colon polyps. IV sedation per Anesthesia. PROCEDURE: After informed consent was obtained, the patient, was brought into the endoscopy unit. IV sedation was administered by Anesthesia under continuous monitoring. Digital rectal examination was normal. Initially the Olympus CF-160 flexible video colonoscope was then inserted in the rectum, gradually advanced into the cecum without any difficulty. Careful examination was performed as the scope was gradually being withdrawn. Ileocecal valve and the appendiceal orifice were visualized and appeared normal. Prep was fair. There was significant amount of stool noted in the base of the cecum was thoroughly irrigated.. Mucosa of the cecum, ascending colon, transverse colon, descending colon, sigmoid colon, and rectum appeared normal. Sigmoid diverticulosis Retroflexion was perf ormed in the rectum and no lesions were seen. The patient tolerated the procedure well. IMPRESSION: Normal-appearing colon from rectum to cecum with no evidence of colorectal neoplasia . Scattered sigmoid diverticulosis. RECOMMENDATIONS: Findings of this examination were discussed with the patient well as his family. He was advised to have a repeat screening colonoscopy in 10 years..
[2023-03-01 07:48] VITALS: RESP 16
[2023-03-01 08:03] VITALS: BP 133/79; PULSE 62
== END 2023-03-01 08:25 | disposition home or self-care (01) ==
LOC: ORWHC2ENDO 05:55
PROVIDERS: ATTEND Internal Medicine Gastroenterology
DX: Z12.11 Encounter for screening for malignant neoplasm of colon (principal); K57.30 Diverticulosis of large intestine without perforation or abscess without bleeding; I25.2 Old myocardial infarction; I25.10 Atherosclerotic heart disease of native coronary artery without angina pectoris; J44.9 Chronic obstructive pulmonary disease, unspecified; G47.33 Obstructive sleep apnea (adult) (pediatric); E11.9 Type 2 diabetes mellitus without complications; E07.9 Disorder of thyroid, unspecified; Z95.5 Presence of coronary angioplasty implant and graft; Z86.010 Personal history of colon polyps; Z98.890 Other specified postprocedural states; Z98.49 Cataract extraction status, unspecified eye; Z79.890 Hormone replacement therapy; Z79.899 Other long term (current) drug therapy
CPT/HCPCS: J2704; G0105

== ENCOUNTER → 2023-05-06 | Outpatient (CLI) | payer MEDICARE ==
[2023-05-06 16:23] LABS: Appearance,BF Hazy
[2023-05-06 16:38] LABS: RBC, Body Fluid 1350 /uL
[2023-05-06 16:39] LABS: Nucleated Cells, Body Fluid 250 /uL
[2023-05-06 16:44] LABS: HCT 45.5 % (39.6-50.0); HGB 15.2 d/dL (12.0-15.0); MCH 30.9 pg (27.0-32.0); MCHC 33.4 d/dL (32.0-37.0); MCV 92.5 FL (80.0-97.0); Mean Platelet Volume 8.9 FL (9.5-12.2); NRBC Per 100 WBC 0 X 10*3/uL (0.00-0.01); Platelet Count 237 X 10*3/uL (140-440); RBC 4.92 X 10*6/uL (4.40-5.60); RDW 12.9 % (11.5-14.5); WBC 7.74 X 10*3/uL (4.50-10.00)
[2023-05-06 16:51] LABS: Mononuclear WBC,Body Fluid 98 %; Polynuclear WBC,Body Fluid 2 %; Total Cells Counted,Body Fluid 100
[2023-05-06 17:11] LABS: Erythrocyte Sedimentation Rate 28 mm/Hr (0-20)
[2023-05-07 09:16] LABS: Synovial Fld Crystals Seen
== END | disposition home or self-care (01) ==
LOC: LABWHC1 09:29
PROVIDERS: ATTEND Orthopaedic Surgery
DX: M17.12 Unilateral primary osteoarthritis, left knee (principal); M25.561 Pain in right knee; M25.562 Pain in left knee; Z96.651 Presence of right artificial knee joint
CPT/HCPCS: 36415; 83520; 85027; 85379; 85652; 86140; 87070; 87075; 87205; 89050; 89060

== ENCOUNTER → 2025-02-10 | Outpatient (CLI) | payer MEDICARE ==
--- NOTE | 2025-02-10 14:35 | XR ---
EXAMINATION TYPE: XR cervical spine comp DATE OF EXAM: 02/10/2025 2:29 PM INDICATION: Patient age:Male; 74 years old; Reason for study: [id number] CDD; [facility], pain COMPARISON: None TECHNIQUE: The cervical spine was imaged in frontal, lateral, bilateral oblique, and odontoid project ions. FINDINGS: No acute fracture. Mild retrolisthesis of C4 on C5. Straightening of the normal cervical lordosis. Th ere are osteophytes noted throughout the cervical spine on the anterior and lateral aspects of the ve rtebral bodies. Multilevel disc space narrowing of the cervical spine from C4 through C7. Pedicles ar e intact. Soft tissues are within normal limits. The odontoid appears intact. IMPRESSION: 1. No fracture or dislocation. 2. Moderate degenerative disc disease changes of the cervical spine. 3. Mild retrolisthesis of C4 on C5. [facility], , 02/10/2025 2:32 PM
== END | disposition home or self-care (01) ==
LOC: RADXRYALE 14:14
PROVIDERS: ATTEND Physician Assistant Medical
DX: M50.30 Other cervical disc degeneration, unspecified cervical region (principal); M43.12 Spondylolisthesis, cervical region
CPT/HCPCS: 72050